=== PATIENT | female | born 1985 | race Caucasian/White ===

== ENCOUNTER 2017-12-17 19:43 | Emergency (ER) | payer OTHER ==
[2017-12-17 21:22] LABS: BASO # 0.1 10^3/uL (0.0-0.2); BASO % 0.5 % (0.0-1.0); EOS # 0.3 10^3/uL (0.0-0.50); EOS % 2.8 % (0.0-3.0); HEMATOCRIT 37.4 % (36.0-47.0); HEMOGLOBIN 11.2 g/dl (12.0-16.0); IMMATURE GRANULOCYTE % 0.3 % (0-3.0); LYMPH # 2.1 10^3/uL (1.5-4.5); LYMPH % 19.6 % (24.0-44.0); MEAN CORPUSCULAR HEMOGLOBIN 21.5 pg (27.0-33.0); MEAN CORPUSCULAR HGB CONC 29.9 g/dl (32.0-36.5); MEAN CORPUSCULAR VOLUME 71.6 fl (80.0-96.0); MONO # 0.6 10^3/uL (0.0-0.8); MONO % 5.8 % (0.0-5.0); NEUTROPHILS # 7.7 10^3/uL (1.8-7.7); PLATELET COUNT, AUTOMATED 441 10^3/uL (150-450); RED BLOOD COUNT 5.22 10^6/uL (4.00-5.40); RED CELL DISTRIBUTION WIDTH 19.3 % (11.5-14.5); WHITE BLOOD COUNT 10.8 10^3/uL (4.0-10.0)
[2017-12-17 21:33] LABS: KETONE, URINE AUTO RFX NEGATIVE (NEGATIVE); MUCUS, URINE RFX SMALL (NEGATIVE); NITRITE, URINE AUTO RFX NEGATIVE (NEGATIVE); RBC, URINE AUTO RFX TNTC /HPF (0-3); SPECIFIC GRAVITY UR AUTO RFX 1.013 (1.002-1.035); SQUAM EPITHELIAL CELL UR AURFX 0 /HPF (0-6)
[2017-12-17 21:46] LABS: LEUKOCYTE ESTERASE UR AUTO RFX TRACE (NEGATIVE); WBC, URINE AUTO RFX 17 /HPF (0-3)
[2017-12-17 22:04] LABS: HCG, SERUM QUANTITATIVE 3127 MIU/ML
== END 2017-12-17 23:07 | disposition home or self-care (01) ==
LOC: M ED 19:43
DX: O03.9 Complete or unspecified spontaneous abortion without complication (principal); O99.280 Endocrine, nutritional and metabolic diseases complicating pregnancy, unspecified trimester; O99.340 Other mental disorders complicating pregnancy, unspecified trimester; Z79.899 Other long term (current) drug therapy
CPT/HCPCS: 76801

== ENCOUNTER 2018-01-01 13:47 | Outpatient (RCR) | payer OTHER | END 2018-01-26 | LOC: M ST 13:47 | DX: Z51.89 Encounter for other specified aftercare (principal); Z85.89 Personal history of malignant neoplasm of other organs and systems ==

== ENCOUNTER → 2018-01-12 | Outpatient (CLI) | payer OTHER ==
[~2018-01-12] MED LIST: ISOVUE-370 76% 100ML VIAL (Q9967) As Ordered
== END ==
LOC: M RAD 15:29
DX: R22.1 Localized swelling, mass and lump, neck (principal)
CPT/HCPCS: Q9967

== ENCOUNTER → 2018-01-19 | Outpatient (REF) | payer OTHER | LOC: M LAB REF 09:41 | DX: J86.0 Pyothorax with fistula (principal) | CPT/HCPCS: 87070; 87186 ==

== ENCOUNTER 2018-02-13 15:43 | Outpatient (RCR) | payer OTHER | END 2018-02-26 | LOC: M ST 15:43 | DX: Z51.89 Encounter for other specified aftercare (principal); Z90.02 Acquired absence of larynx ==

== ENCOUNTER 2019-02-17 16:07 | Emergency (ER) | payer OTHER ==
[~2019-02-17] VITALS: Ht 160 cm; Wt 52.3 kg
[~2019-02-17 16:07] MED LIST changes: +AMBI10TA PO; +BUSP30TA PO; +COLA100C5 PO; +EFFE150C2 PO; -ISOVUE-370 76% 100ML VIAL (Q9967) As Ordered; +PRENTAB55 PO; +SYNT100T PO
[2019-02-17] MEDS ORDERED: ONDA4TAB6 PO (16:18)
[2019-02-17] MEDS ORDERED: METOCLOPRAMIDE INJ 10MG/2ML VIAL (J2765) IV ONE (18:00)
[2019-02-17] MEDS ORDERED: NS 1,000 ML IV ONE (18:00)
[2019-02-17 18:21] LABS: BASO % 0.3 % (0.0-1.0); EOS # 0.1 10^3/uL (0.0-0.50); EOS % 0.5 % (0.0-3.0); HEMATOCRIT 33.9 % (36.0-47.0); HEMOGLOBIN 9.9 g/dl (12.0-15.5); LYMPH # 1.7 10^3/uL (1.5-4.5); LYMPH % 11.7 % (24.0-44.0); MEAN CORPUSCULAR HEMOGLOBIN 19.3 pg (27.0-33.0); MEAN CORPUSCULAR HGB CONC 29.2 g/dl (32.0-36.5); MEAN CORPUSCULAR VOLUME 66.1 fl (80.0-96.0); MONO # 0.7 10^3/uL (0.0-0.8); NEUTROPHILS # 12.2 10^3/uL (1.8-7.7); NEUTROPHILS % 82.2 % (36.0-66.0); PLATELET COUNT, AUTOMATED 457 10^3/uL (150-450); RED BLOOD COUNT 5.13 10^6/uL (4.00-5.40); WHITE BLOOD COUNT 14.8 10^3/uL (4.0-10.0)
[2019-02-17 18:46] LABS: ALBUMIN 3.4 GM/DL (3.2-5.2); ALT/SGPT 19 U/L (12-78); BILIRUBIN,DIRECT < 0.1 MG/DL (0.0-0.2); BILIRUBIN,TOTAL 0.4 MG/DL (0.2-1.0); BLOOD UREA NITROGEN 6 MG/DL (7-18); CALCIUM LEVEL 9.7 MG/DL (8.5-10.1); CARBON DIOXIDE LEVEL 22 MEQ/L (21-32); CHLORIDE LEVEL 103 MEQ/L (98-107); CREATININE FOR GFR 0.67 MG/DL (0.55-1.30); GLOMERULAR FILTRATION RATE > 60.0 (>60); GLUCOSE, FASTING 83 MG/DL (70-100); LIPASE 106 U/L (73-393); SODIUM LEVEL 136 MEQ/L (136-145); TOTAL PROTEIN 7.7 GM/DL (6.4-8.2)
--- NOTE | 2019-02-17 19:24 | REPVR ---
EXAM: US First Trimester, Transabdominal EXAM DATE/TIME: 02/17/2019 6:49 PM CLINICAL HISTORY: 33 years old, female; Signs and symptoms; Lmp or gestational age (in weeks): 9 weeks 0 days; Other: Nausea vomitting, pelvic pressure; TECHNIQUE: Imaging protocol: Real-time transabdominal obstetrical ultrasound of the maternal pelvis and a first trimester , less than 14 weeks 0 days, with image documentation. COMPARISON: US OBS SINGEL GEST 03/03/2015 5:42 PM FINDINGS: Other findings: Early placentation forming anteriorly. GESTATION: Gestation: Single gestational sac demonstrated within the uterine fundus. Single fetus demonstrated within the gestational sac with a crown-rump length of 2.76 cm. 6 mm yolk sac demonstrated. Heart rate: heart rate is 178 beats per minute. Placenta: Unremarkable. No subchorionic bleed. Amniotic fluid: Amniotic and chorionic fluid are normal for gestational age. BIOMETRY: Estimated gestational age: Gestational age based on crown-rump length is 9 weeks 4 days. Gestational age based on LMP of 12/16/2018 is 9 weeks. CM 09/22/29. Estimated due date: CM is 09/18/2019 using ultrasound measurements. MATERNAL: Uterus: Unremarkable. Cervix: Unremarkable. Right adnexa: Hypoechoic lesion in the right ovary measures 3 x 1.9 x 1.7 cm consistent with a corpus luteum. Left adnexa: Unremarkable. Intraperitoneal: No intraperitoneal free fluid. IMPRESSION: Unremarkable for trimester gestation measuring 9 weeks 4 days using ultrasound versus 9 weeks using LMP. Detail anatomic structural survey at 19-20 weeks and be performed if clinically desired. Electronically signed by: Rafael Hermosillo On 02/17/2019 19:23:55 PM
[2019-02-17] MEDS ORDERED: KEFL500C17 PO (19:54)
[2019-02-17] MEDS ORDERED: PROM1SUP2 PR (20:15)
[2019-02-17 20:31] VITALS: BP 148/90
[2019-02-17] MEDS: CEPHALEXIN 500 MG CAP PO ONE ×2 (20:35→20:48)
[2019-02-17] MEDS ORDERED: CEPH25SS PO (20:45)
[2019-02-17] MEDS ORDERED: CEPHALEXIN SUSP POWDER 250MG/5ML BTL 100ML PO ONE (20:45)
== END 2019-02-17 20:45 | disposition home or self-care (01) ==
LOC: M ED 16:07
DX: O23.41 Unspecified infection of urinary tract in pregnancy, first trimester (principal); R03.0 Elevated blood-pressure reading, without diagnosis of hypertension; O99.011 Anemia complicating pregnancy, first trimester; D50.9 Iron deficiency anemia, unspecified; Z3A.09 9 weeks gestation of pregnancy; O99.341 Other mental disorders complicating pregnancy, first trimester; F33.9 Major depressive disorder, recurrent, unspecified; F41.9 Anxiety disorder, unspecified; O99.281 Endocrine, nutritional and metabolic diseases complicating pregnancy, first trimester; E03.9 Hypothyroidism, unspecified; Z79.899 Other long term (current) drug therapy; Z79.890 Hormone replacement therapy
CPT/HCPCS: 76801; 80048; 80076; 81001; 83690; 85025; 87086; 96361; 96374; 99284; J2765

== ENCOUNTER → 2019-03-10 | Outpatient (CLI) | payer OTHER ==
[~2019-03-10] MED LIST changes: +CEPH25SS PO; +KEFL500C17 PO; +ONDA4TAB6 PO; +PROM1SUP2 PR
--- NOTE | 2019-03-13 08:09 | ECHO ---
DATE OF PROCEDURE: 03/10/2019 REFERRING PROVIDER: Dr. Allen PATIENT LOCATION: Outpatient. REASON FOR ECHOCARDIOGRAM: . History of cardiomyopathy. 2D MEASUREMENTS: IVS 0.74 cm LV 4.3 cm LVPW 1.1 cm LA 2.6 cm Aorta 2.7 cm DOPPLER MEASUREMENT: Peak velocity across the aortic valve 1.3 m/s Peak velocity across the LVOT 0.84m/s Mitral E 0.85 Mitral A 0.47 with a ratio of 1.8 2D COMMENTS: 1. Normal left ventricular size, wall thickness and normal global left ventricular systolic function. The estimated global left ventricular systolic function is 60-65%. 2. Normal left atrium. Normal right atrium and left ventricle. 3. The atrial septum appeared to be normal without evidence of defect or shunt. 4. Normal aortic root. 5. No pericardial effusion seen. 6. The aortic valve, mitral valve, tricuspid valve, and pulmonic valve appeared to be normal. The proximal pulmonary artery branches were not well visualized. 7. The inferior vena cava was not visualized. Doppler, no significant valvular abnormalities detected. The left ventricular diastolic function appeared to be normal. IMPRESSION: 1. Normal global left ventricular systolic and diastolic function. 2. No significant valvular abnormality detected.
== END ==
LOC: M CARPUL 10:44
PROVIDERS: ATTEND Obstetrics & Gynecology
DX: O99.411 Diseases of the circulatory system complicating pregnancy, first trimester (principal); I42.9 Cardiomyopathy, unspecified; Z3A.00 Weeks of gestation of pregnancy not specified

== ENCOUNTER 2019-06-20 19:36 | Emergency (ER) | payer OTHER ==
[~2019-06-20] VITALS: Ht 160 cm; Wt 53.4 kg
[2019-06-20] MEDS ORDERED: FERR325T18 PO (19:54)
[2019-06-20] MEDS ORDERED: METO5TAB2 PO (19:54)
[2019-06-20] MEDS ORDERED: NS 1,000 ML IV ONE (20:15)
[2019-06-20] MEDS ORDERED: METOCLOPRAMIDE INJ 10MG/2ML VIAL (J2765) IV ONE (20:15)
[2019-06-20] MEDS ORDERED: MORPHINE 4 MG/ML 1ML VIAL/SYRINGE (J2270) IV PRN (20:15)
[2019-06-20 20:44] LABS: BASO % 0.3 % (0.0-1.0); EOS % 0.1 % (0.0-3.0); HEMATOCRIT 41.2 % (36.0-47.0); HEMOGLOBIN 11.8 g/dl (12.0-15.5); LYMPH # 1.5 10^3/uL (1.5-5.0); LYMPH % 9.9 % (24.0-44.0); MEAN CORPUSCULAR HGB CONC 28.6 g/dl (32.0-36.5); MEAN CORPUSCULAR VOLUME 66.5 fl (80.0-96.0); MONO # 0.5 10^3/uL (0.0-0.8); MONO % 3.4 % (0.0-5.0); NEUTROPHILS % 85.8 % (36.0-66.0); PLATELET COUNT, AUTOMATED 238 10^3/uL (150-450); WHITE BLOOD COUNT 15.2 10^3/uL (4.0-10.0)
[2019-06-20] MEDS ORDERED: diphenhydrAMINE INJ 50MG/ML VIAL (J1200) IV ONE (20:45)
[2019-06-20] MEDS ORDERED: fentaNYL 100 MCG/2 ML INJECTION (J3010) IV ONE (21:00)
[2019-06-20 21:14] LABS: ALBUMIN 1.7 GM/DL (3.2-5.2); ALT/SGPT 24 U/L (12-78); BILIRUBIN,DIRECT < 0.1 MG/DL (0.0-0.2); BILIRUBIN,TOTAL 0.2 MG/DL (0.2-1.0); BLOOD UREA NITROGEN 15 MG/DL (7-18); CALCIUM LEVEL 8.7 MG/DL (8.5-10.1); CARBON DIOXIDE LEVEL 20 MEQ/L (21-32); CHLORIDE LEVEL 102 MEQ/L (98-107); CREATININE FOR GFR 1.03 MG/DL (0.55-1.30); GLOMERULAR FILTRATION RATE > 60.0 (>60); GLUCOSE, FASTING 92 MG/DL (70-100); MAGNESIUM LEVEL 2.1 MG/DL (1.8-2.4); POTASSIUM SERUM 4.3 MEQ/L (3.5-5.1); SODIUM LEVEL 134 MEQ/L (136-145); TOTAL PROTEIN 5.7 GM/DL (6.4-8.2); URIC ACID 5.7 MG/DL (2.6-6.0)
[2019-06-20] MEDS ORDERED: ONDANSETRON 4MG/2ML VIAL (J2405) As Ordered ONE (21:49)
[2019-06-20] MEDS ORDERED: LABETALOL HCL 100 MG/20 ML VIAL IV STA (22:34)
[2019-06-20 22:40] VITALS: BP 162/123
[2019-06-20 23:27] LABS: TOTAL PROTEIN,RANDOM URINE 2167.6 MG/DL (0.0-12.0)
--- NOTE | 2019-06-21 21:18 | ECGEPIP ---
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
== END 2019-06-20 22:54 | disposition admitted as inpatient to this hospital (09) ==
LOC: M ED 19:36
DX: O14.92 Unspecified pre-eclampsia, second trimester (principal); Z3A.27 27 weeks gestation of pregnancy; Z79.899 Other long term (current) drug therapy

== ENCOUNTER 2019-06-20 23:03 | Outpatient (CLI) | payer OTHER ==
[2019-06-20] VITALS (7 sets, daily range): BP systolic 132–160; BP diastolic 95–112
[~2019-06-20 23:03] MED LIST changes: +FERR325T18 PO; +METO5TAB2 PO
[2019-06-20] MEDS ORDERED: MAGNESIUM *L&D* 4 GM/100 ML BAG (40MG/ML) (J3475) As Ordered ONE (23:08)
[2019-06-20] MEDS ORDERED: BETAMETHASONE SOLUSPAN 6MG/ML INJ 5ML (J0702) As Ordered ONE (23:08)
[2019-06-20] MEDS ORDERED: MAG Sulf (OBGYN) 20GM/500ML 20,000 MG in IV 1 EA IV SCH (23:13)
[2019-06-20] MEDS ORDERED: BETAMETHASONE SOLUSPAN 6MG/ML INJ 5ML (J0702) IM SCH (23:15)
[2019-06-20] MEDS ORDERED: MAG Sulf (L&D) 4 GM/100 ML 4 GM in IV 1 EA IV ONE (23:15)
[2019-06-20] MEDS ORDERED: MAGNESIUM SULFATE 4% INJ 20GM/500ML (40MG/ML) (J3475) As Ordered ONE (23:30)
[2019-06-21] VITALS (10 sets, daily range): BP systolic 104–160; BP diastolic 77–113
[2019-06-21] MEDS ORDERED: hydrALAZINE INJ 20 MG/ML VIAL IV ONE
--- NOTE | 2019-06-21 00:42 | HPEPDOC ---
Obstetrical History & Physical General Date of Admission History of Present Illness 33 yo at 26+4 weeks by 6+2 week US on 29Jan2019 (CM [id number]) presented to the ER with severe headache and dizziness that acutely worsened this evening. In the ER she was found to have BPs in the 180s systolic. Blood work was obtained. She was given 20mg IV labetalol to help control her blood pressure. She denies any vaginal bleeding, pelvic pain, or leakage of fluid. She endorses feeling movement. 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 Past Medical History Medical History Hypothyroidism Anxiety/depression 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 Anemia Insomnia Surgical History: Other (Laryngectomy, multiple stricture dilation surgeries, sinus surgery) Family History Significant Family History: No pertinent family hx Family History Non contributory Social History Marital Status: Family situation: Spouse/partner home Psychosocial History: Anxiety, Depression * Smoker: non-smoker Alcohol: Denies Drugs: denies Imunizations Tdap status: needs Influenza Status: needs Allergies Coded Allergies: No Known Allergies (Unverified , 12/17/17) Medications Scheduled Ferrous Sulfate (Ferrous Sulfate) 325 Mg Tablet, 325 MG PO DAILY Scheduled PRN Ondansetron (Ondansetron Odt) 4 Mg Tab.rapdis, 1 TAB PO Q6-8HP PRN for nausea/vomiting Promethazine HCl (Promethazine HCl) 50 Mg Supp.rect, 25 MG MA Q6HP PRN for NAUSEA Miscellaneous Medications Levothyroxine Sodium (Synthroid) 100 Mcg Tab, 112 MCG PO Metoclopramide HCl (Metoclopramide HCl) 5 Mg Tablet, 5 MG PO Venlafaxine HCl (Effexor Xr) 150 Mg Cap, 225 MG PO Zolpidem Tartrate (Ambien) 10 Mg Tab, 10 MG PO Physical Examination Physical Examination GENERAL: Alert and oriented times three. ABDOMEN: Gravid and non-tender to touch. FETUS: Is vertex (VTX) by bedside TAUS HEART RATE: Regular rate and rhythm. LUNGS: Clear to auscultation (CTA). EXTREMITIES: No edema. No clonus. Vital Signs/I&O Vital Signs Date Time Temp Pulse Resp B/P (MAP) Pulse Ox O2 Delivery O2 Flow Rate FiO2 06/20/19 23:24 97.6 84 150/110 (123) 98 Room Air Laboratory Data Urine Culture: No Growth Pertinent Laboratoy Data Blood Type: A+ RBC Antibody Screen: Negative HIV: Negative Hepatitis B: Negative Hepatitis C: Unknown Rapid Plasma Reagin: Nonreactive Rubella: Immune Varicella: Immune Chlamydia/Gonorrhea: Negative Group B Streptococcus: Unknown Quad Screen Test: Negative Cystic Fibrosis: Negative Anatomy Ultrasound Normal Anatomy: Yes Placenta Previa: No Steroid Therapy Steroid Therapy: Yes Date #1: Jun 20, 2019 (Given at 2326 on 20Jun2019) Reason Severe Pre eclampsia Assessment Heart Rate (FHR): 130 Variability: Moderate Accelerations: Positive Decelerations: None Tocometer Contractions: No Assessment/Plan Assessment 33 yo at 26+4 weeks gestation with severe pre eclampsia. Plan Diagnosis of severe Pre E confirmed based on new onset severely elevated blood pressures and pr:cr of 15.26. 4gm bolus of IV magnesium given, followed by 2gm/hr. 12mg IM BTMZ given at 2327 on 20Jun2019. 20mg IV labetolol given for assistance with BP control. Will add 300mg PO labetolol to prevent rebound hypertension. Reassuring status for gestational age. Will be transferring to [place] for NICU care due to severe pre eclampsia and likely need for delivery soon. Dr. Crawford at [place] has graciously accepted her transfer. Patient stabilized before transfer. I discussed with Ms. Garza and her the seriousness and nature of her condition. We discussed the reason for BTMZ and magnesium, and the reason for the transfer to [place]. We also discussed NICU care expectations and duration of care. All patient questions answered. DO ALEJANDRO Rajan CHRISTOPHER J. DO Jun 21, 2019 00:42
[2019-06-21] MEDS ORDERED: LABETALOL 100 MG TAB As Ordered ONE (00:55)
[2019-06-21] MEDS ORDERED: ACETAMINOPHEN 325 MG TAB As Ordered ONE (00:56)
[2019-06-21] MEDS ORDERED: ACETAMINOPHEN 325 MG TAB PO ONE (01:00)
[2019-06-21] MEDS ORDERED: LABETALOL 100 MG TAB PO SCH (09:00)
== END 2019-06-21 02:25 | disposition short-term general hospital (02) ==
LOC: M LDO 23:03
PROVIDERS: ATTEND Obstetrics & Gynecology
DX: O14.13 Severe pre-eclampsia, third trimester (principal); Z3A.27 27 weeks gestation of pregnancy; Z79.899 Other long term (current) drug therapy
CPT/HCPCS: 36415; 76815; 80048; 80076; 81001; 82570; 83735; 84156; 84550; 85025; 87086; 93005; 93041; 94760; 96361; 96365; 96366; 96372; 96374; 96375; 99285; G0378; G0463; J0702; J1200; J2765; J3010; J3475